=== PATIENT | male | born 1965 | race Caucasian/White ===

== ENCOUNTER 2017-05-18 07:47 | Emergency (ER) | payer SELFPAY ==
[2017-05-18 07:51] VITALS: BP 185/85
[2017-05-18] MEDS ORDERED: Cephalexin CAP* 500 MG PO ONE (08:00)
--- NOTE | 2017-05-18 18:53 | ED ---
Bi Elmore Angela, scribed for Kendall Treadwell MD on 05/18/17 at 0800 . Skin Complaint - HPI Summary HPI Summary: This pt is a 51 y/o male presenting to [facility] c/o redness area on his back x2 days. Pt notes that initially the area presented as a small sore. He reports it has progressively become larger in size. Pt denies fever. There are no aggravating or alleviating factors. He denies any PMHx of MRSA. NKDA. - History of Current Complaint Chief Complaint: EDRashSkinAbscess Time Seen by Provider: 05/18/17 07:53 Stated Complaint: LUMP ON BACK Hx Obtained From: Patient Onset/Duration: Started Days Ago, Still Present Skin Exposure Onset/Duration: Days Ago Timing: Lasting Days Pain Intensity: 2 Pain Scale Used: 0-10 Numeric Skin Location: Other: - back Character: Redness Aggravating Symptom(s): Nothing Alleviating Symptom(s): Nothing - Allergy/Home Medications Allergies/Adverse Reactions: Allergies Allergy/AdvReac Type Severity Reaction Status Date / Time No Known Allergies Allergy Verified 12/14/15 16:45 PMH/Surg Hx/FS Hx/Imm Hx Endocrine/Hematology History: Denies: Hx Diabetes, Hx Thyroid Disease Cardiovascular History: Denies: Hx Hypertension, Hx Pacemaker/ICD Respiratory History: Denies: Hx Asthma, Hx Chronic Obstructive Pulmonary Disease (COPD) GI History: Denies: Hx Ulcer Neurological History: Denies: Hx Seizures - Surgical History Surgery Procedure, Year, and Place: rt inguinal hernia repair 6 yrs ago Infectious Disease History: No Infectious Disease History: Reports: History Other Infectious Disease - Lyme 2014 Denies: Hx Hepatitis, Hx Human Immunodeficiency Virus (HIV), Traveled Outside the [place] in Last 30 Days - Family History Known Family History: Positive: Diabetes - Brother - Social History Alcohol Use: None Substance Use Type: Reports: None Smoking Status (MU): Never Smoked Tobacco Review of Systems Negative: Fever, Chills Eyes: Negative ENT: Negative Cardiovascular: Negative Respiratory: Negative Gastrointestinal: Negative Genitourinary: Negative Skin: Other - red area on back All Other Systems Reviewed And Are Negative: Yes Physical Exam - Summary Physical Exam Summary: VITAL SIGNS: Reviewed. GENERAL: Patient is a well-developed and nourished male who is lying comfortable in the stretcher. Patient is not in any acute respiratory distress. HEAD AND FACE: No signs of trauma. No ecchymosis, hematomas or skull depressions. No sinus tenderness. EYES: PERRLA, EOMI x 2, No injected conjunctiva, no nystagmus. EARS: Hearing grossly intact. Ear canals and tympanic membranes are within normal limits. MOUTH: Oropharynx within normal limits. NECK: Supple, trachea is midline, no adenopathy, no JVD, no carotid bruit, no c- spine tenderness, neck with full ROM. CHEST: Symmetric, no tenderness at palpation LUNGS: Clear to auscultation bilaterally. No wheezing or crackles. CVS: Regular rate and rhythm, S1 and S2 present, no murmurs or gallops appreciated. ABDOMEN: Soft, non-tender. No signs of distention. No rebound no guarding, and no masses palpated. Bowel sounds are normal. EXTREMITIES: FROM in all major joints, no edema, no cyanosis or clubbing. NEURO: Alert and oriented x 3. No acute neurological deficits. Speech is normal and follows commands. SKIN: Dry and warm. On back: there is induration of the skin. There is no abscess formation at this point. Triage Information Reviewed: Yes Vital Signs On Initial Exam: Initial Vitals Temp Pulse Resp BP Pulse Ox 98.7 F 117 18 185/85 97 05/18/17 07:48 05/18/17 07:48 05/18/17 07:48 05/18/17 07:48 05/18/17 07:48 Vital Signs Reviewed: Yes Diagnostics - Vital Signs Vital Signs Temp Pulse Resp BP Pulse Ox 05/18/17 07:48 98.7 F 117 18 185/85 97 - Laboratory Lab Statement: Any lab studies that have been ordered have been reviewed, and results considered in the medical decision making process. Course/Dx - Course Assessment/Plan: This pt is a 51 y/o male presenting to [facility] c/o redness area on his back x2 days. Pt notes that initially the area presented as a small sore. He reports it has progressively become larger in size. Pt denies fever. There are no aggravating or alleviating factors. He denies any PMHx of MRSA. NKDA. The pt has a small area of cellulitis on right upper back. There is no abscess formation at this time. Therefore, I will be treating the pt with antibiotics. He was given Keflex and is advised to follow up with his PCP. He was instructed to return to the ED for increase in pain, increase in cellulitis , or abscess formation. Pt understands and agrees. Pt is hemodynamically stable , alert and oriented x3. - Diagnoses Provider Diagnoses: Cellulitis Discharge - Discharge Plan Condition: Stable Disposition: HOME Prescriptions: Cephalexin CAP* [Keflex CAP*] 500 mg PO QID #40 cap Patient Education Materials: Cellulitis (ED) Referrals: [facility] [Outside] Additional Instructions: Please follow up with your primary care provider. RETURN TO THE ED FOR ANY WORSENING SYMPTOMS. The documentation as recorded by the Bi rdz Angela accurately reflects the service I personally performed and the decisions made by , Kendall Treadwell MD.
== END 2017-05-18 08:17 | disposition home or self-care (01) ==
LOC: ED 07:47
DX: L03.312 Cellulitis of back [any part except buttock and flank] (principal)
CPT/HCPCS: 99282; A9270-GY

== ENCOUNTER 2018-05-31 18:24 | Emergency (ER) | payer SELFPAY ==
[2018-05-31] MEDS ORDERED: HYDROcodone/ACETAMIN 5-325 MG* 1 TAB PO ONE (19:06)
[2018-05-31] MEDS ORDERED: Ibuprofen TAB* 600 MG PO ONE (20:08)
--- NOTE | 2018-05-31 20:10 | ED ---
Lower Extremity - HPI Summary HPI Summary: Patient complains of right shoulder pain and left knee pain status post mechanical fall this evening. Patient admits to 3 beers, but it is appropriate in behavior and response. Friend is present and witnessed fall and states patient is near baseline in behavior and response. Patient states he has not ambulated since mechanical fall. States pain in shoulder and left knee 2/10 at rest, 10/10 with movement. Denies any other pain, injury, symptoms. - History of Current Complaint Chief Complaint: EDTraumaMultiple Stated Complaint: RT SHOULDER AND LT KNEE PAIN Time Seen by Provider: 05/31/18 18:46 Hx Obtained From: Patient Mechanism Of Injury: Fall From A Standing Position Onset of Pain: Immediate Onset/Duration: Hours Severity Initially: Severe Severity Currently: Severe Pain Intensity: 9 Pain Scale Used: 0-10 Numeric Timing: Constant Location: Is Discrete @ Character Of Pain: Aching, Throbbing Associated Signs And Symptoms: Positive: Knee Pain Aggravating Factor(s): Standing, Ambulation, Movement, Weight Bearing Alleviating Factor(s): Rest Able to Bear Weight: No - Allergies/Home Medications Allergies/Adverse Reactions: Allergies Allergy/AdvReac Type Severity Reaction Status Date / Time No Known Allergies Allergy Verified 05/31/18 19:01 PMH/Surg Hx/FS Hx/Imm Hx Endocrine/Hematology History: Denies: Hx Diabetes, Hx Thyroid Disease Cardiovascular History: Denies: Hx Hypertension, Hx Pacemaker/ICD Respiratory History: Denies: Hx Asthma, Hx Chronic Obstructive Pulmonary Disease (COPD) GI History: Denies: Hx Ulcer History: Denies: Hx Dialysis Neurological History: Denies: Hx Seizures Psychiatric History: Denies: Hx Autism - Surgical History Surgery Procedure, Year, and Place: rt inguinal hernia repair 6 yrs ago Infectious Disease History: No Infectious Disease History: Reports: History Other Infectious Disease - Lyme 2014 Denies: Hx Hepatitis, Hx Human Immunodeficiency Virus (HIV), Traveled Outside the [place] in Last 30 Days - Family History Known Family History: Positive: Unknown, Diabetes - Brother - Social History Alcohol Use: None Substance Use Type: Reports: None Smoking Status (MU): Never Smoked Tobacco Review of Systems Constitutional: Negative Eyes: Negative ENT: Negative Cardiovascular: Negative Respiratory: Negative Gastrointestinal: Negative Genitourinary: Negative Musculoskeletal: Other Skin: Negative Neurological: Negative Psychological: Normal All Other Systems Reviewed And Are Negative: Yes Physical Exam - Summary Physical Exam Summary: No ecchymosis, erythema, swelling, deformity, extra warmth noted to right shoulder or left knee. Patient able to move left upper extremity and right lower extremity freely without pain. No evidence of trauma to mouth, face, head. Patient rotates and flexes and extends neck freely. No pain with palpation of back, abdomen, chest wall. Triage Information Reviewed: Yes Vital Signs On Initial Exam: Initial Vitals Temp Pulse Resp BP Pulse Ox 99.7 F 82 18 185/106 93 05/31/18 18:30 05/31/18 18:30 05/31/18 18:30 05/31/18 18:30 05/31/18 18:30 Vital Signs Reviewed: Yes Appearance: Positive: Well-Appearing Skin: Positive: Warm Head/Face: Positive: Normal Head/Face Inspection Eyes: Positive: Normal ENT: Positive: Normal ENT inspection Neck: Positive: Supple Respiratory/Lung Sounds: Positive: Clear to Auscultation Cardiovascular: Positive: Normal Abdomen Description: Positive: Nontender Musculoskeletal: Positive: Normal Neurological: Positive: Normal Psychiatric: Positive: Normal AVPU Assessment: Alert - Fareed Coma Scale Best Eye Response: 4 - Spontaneous Best Motor Response: 6 - Obeys Commands Best Verbal Response: 5 - Oriented Coma Scale Total: 15 Diagnostics - Vital Signs Vital Signs Temp Pulse Resp BP Pulse Ox 05/31/18 18:30 99.7 F 82 18 185/106 93 - Laboratory Lab Statement: Any lab studies that have been ordered have been reviewed, and results considered in the medical decision making process. Lower Extremity Course/Dx - Course Course Of Treatment: Patient complains of right shoulder pain and left knee pain status post mechanical fall this evening. Patient admits to 3 beers, but it is appropriate in behavior and response. Friend is present and witnessed fall and states patient is near baseline in behavior and response. Patient states he has not ambulated since mechanical fall. States pain in shoulder and left knee 2/10 at rest, 10/10 with movement. Denies any other pain, injury, symptoms. Physical exam:No ecchymosis, erythema, swelling, deformity, extra warmth noted to right shoulder or left knee. Patient able to move left upper extremity and right lower extremity freely without pain. No evidence of trauma to mouth, face, head. Patient rotates and flexes and extends neck freely. No pain with palpation of back, abdomen, chest wall. X-ray right shoulder and left knee both negative. Patient insists on left knee immobilizer and crutches. Patient advised to follow-up with orthopedics. - Diagnoses Provider Diagnoses: Fall, Knee pain, Shoulder pain Discharge - Sign-Out/Discharge Documenting (check all that apply): Patient Departure - Discharge Plan Condition: Stable Disposition: HOME Prescriptions: HYDROcodone/ACETAMIN 5-325 MG* [Horatio 5-325 TAB*] 1 tab PO TID 2 Days #4 tab MDD 3 tabs Patient Education Materials: Knee Sprain (ED), Shoulder Sprain (ED) Referrals: No Primary Care Phys,NOPCP [Primary Care Provider] - Mykel Toledo MD [Medical Doctor] - Additional Instructions: Rest, ice, ibuprofen for pain. Follow-up with orthopedics Dr Toledo for further evaluation. Return to the ED for any new or worsening symptoms - Billing Disposition and Condition Condition: STABLE Disposition: Home
[2018-05-31 20:33] VITALS: BP 130/75
== END 2018-05-31 20:32 | disposition home or self-care (01) ==
LOC: ED 18:24
DX: M25.511 Pain in right shoulder (principal); M25.562 Pain in left knee; W19.XXXA Unspecified fall, initial encounter; Y92.9 Unspecified place or not applicable
CPT/HCPCS: 99282; A9270-GY

== ENCOUNTER 2018-06-23 10:16 | Emergency (ER) | payer SELFPAY ==
[2018-06-23 10:30] VITALS: BP 137/87
== END 2018-06-23 10:40 | disposition left against medical advice (07) ==
LOC: UCEAST 10:16
DX: Z53.21 Procedure and treatment not carried out due to patient leaving prior to being seen by health care provider (principal)

== ENCOUNTER → 2018-08-20 11:59 | Day surgery (SDC) | payer MEDICAID ==
--- NOTE | 2018-08-16 15:26 | HP ---
PREOPERATIVE HISTORY AND PHYSICAL: DATE OF ADMISSION/SURGERY: 08/20/18 DATE OF OFFICE VISIT: 08/16/18 ATTENDING SURGEON: Dr. Shashi Villasenor.* (DICTATED BY PRADEEP CHANDRA) PROCEDURE: Left knee patellar tendon repair possibly with allograft. CHIEF COMPLAINT: Left knee pain. HISTORY OF PRESENT ILLNESS: Renny is a 52-year-old male who presents to the clinic for chronic left knee patellar tendon tear. He has failed conservative measures, therefore agreed to undergo a left knee patellar tendon repair possibly with allograft by Dr. Villasenor on 08/20/18. PAST MEDICAL HISTORY: Lyme disease, gout, diverticulitis, hypertension. PAST SURGICAL HISTORY: Hernia repair. Denies prior complications with anesthesia. MEDICATIONS: Ibuprofen 200 mg 2 to 3 tabs every 6 hours as needed for pain. ALLERGIES: No known drug allergies. FAMILY HISTORY: Denies pertinent family history. SOCIAL HISTORY: He lives with his family. 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 He denies tobacco use. He reports occasional alcohol consumption. He is right hand dominant. REVIEW OF SYSTEMS: A 14-point review of systems was reviewed with the patient. Positive for current complaint, otherwise negative. Denies fever, chills, chest pain, shortness of breath, history of DVT or PE, history of bleeding disorder. PHYSICAL EXAMINATION GENERAL: A 52-year-old well-developed, well-nourished male, in no acute distress. VITAL SIGNS: Height 70, weight 182, blood pressure 120/78, BMI 26.1. HEENT: Normocephalic, atraumatic. PERRLA. Throat clear. NECK: Supple. PULMONARY: Lungs are clear to auscultation bilaterally. No wheezing, rhonchi, or rales. CARDIO: Regular rate and rhythm. S1, S2. No murmurs, gallops, or rubs. No edema. ABDOMEN: Positive bowel sounds. Soft, nontender. NEURO: Alert and oriented x3. Cranial nerves grossly intact. MUSCULOSKELETAL: Left lower extremity: Skin is intact. No warmth or erythema. Unable to extend leg against gravity. Stable to varus and valgus stress. Calves soft, nontender. +5/5 strength to ankle dorsiflexion and plantarflexion. +2 DP pulse. Sensation intact to light touch distally. IMPRESSION: Left knee patellar tendon tear. PLAN: The patient is scheduled to undergo a left knee patellar tendon repair possibly with allograft with Dr. Villasenor on 08/20/18. He will follow up in 10 to 14 days postop for followup and suture removal. Percocet will be used for postop pain management. PRADEEP CHANDRA [id number]/[facility] #: [id number] ORLIN
[~2018-08-20 11:59] MED LIST: Buffered Lidocaine 1% SYRIN* 1 ML/SYRINGE INTRADERM ONE; Dexamethasone IV* 4 MG/ML 1 ML (4 MG) IV SLOW PU ONE; DiMENhydriNATE IV* 50 MG/ML VIAL IV PUSH PRN; Famotidine IV* 10 MG/ML 2 ML (20 mg) IV ONE; Glycopyrrolate IV* 0.2 MG/ML 1 ML VIAL ONE; HYDROmorphone INJ1* 1 MG/ML SYRINGE IV PRN; Ketorolac INJ* 30 MG/ML 1 ML VIAL ONE; Lactated Ringers 1000 ML Bag* 1,000 ML IV SCH; Lidocaine 2% PF * 5 ML VIAL ONE; Midazolam* 1 MG/ML 5 ML VIAL (5 MG) ONE; Naloxone* 0.4 MG/ML 1 ML VIAL IV PRN; Ondansetron INJ* 2 MG/ML VIAL IV PRN; Ondansetron INJ* 2 MG/ML VIAL ONE; Propofol* 10 MG/ML 20 ML BTL ONE; Rocuronium* 10 MG/ML VIAL ONE; Ropivacaine* 2 MG/ML 20 ML VIAL (0.2%) ONE; Sugammadex * 200 MG/2 ML VIAL IV PUSH ONE; Sugammadex * 500 MG/5 ML VIAL IV PUSH ONE; fentaNYL* 50 MCG/ML 2 ML VIAL (100 MCG VIAL) IV PRN; fentaNYL* 50 MCG/ML 2 ML VIAL (100 MCG VIAL) ONE; fentaNYL* 50 MCG/ML 5 ML VIAL (250 MCG VIAL) ONE; oxyCODONE/Acetamin 5/325 MG* TAB ONE
[2018-08-20] MEDS: oxyCODONE/Acetamin 5/325 MG* TAB PO PRN ×2 (17:53→18:57)
[2018-08-20 19:37] VITALS: BP 147/97
--- NOTE | 2018-08-21 12:30 | OP ---
DATE OF OPERATION: 08/20/18 [facility] DATE OF : 69 SURGEON: Shashi Villasenor MD ELECTRONIC INSTRUMENT TRADES WORKER: PRADEEP Mackenzie. An statistical assistant was needed for the entirety of the case to help with positioning, retraction, and was utilized throughout all portions of the case. ANESTHESIOLOGIST: Dr. Cameron. ANESTHESIA: General. PRE-OP DIAGNOSIS: Left chronic patellar tendon rupture. 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 OPERATIVE PROCEDURE: Left patellar tendon reconstruction using allograft. INDICATIONS: Renny Smith is a 52-year-old male who sustained injury to his left knee when he slipped around 05/22/18 after Thanksgiving. He underwent x-rays and they missed that he had a patellar tendon rupture. This happened actually on 05/22/18. He has had persistent pain, difficulty with walking. He initially saw me on 07/05/18, and we diagnosed him with the rupture and we scheduled him for surgery. He was unable to do it due to insurance issues. Then, he got insurance and now injured it again. He would like to have this addressed. We talked about the risks and benefits of surgery. Risks include but are not limited to bleeding, infection; damage to nerves, vessels, surrounding structures; wound nonhealing, persistent pain, need for further surgery, scarring, stiffness, incomplete relief of symptoms, risks of anesthesia. He has elected to proceed with surgical treatment. We did discuss that he is a risk of stiffness and risk of DVT because of the nature of this injury. He has elected to proceed with surgery. COMPLICATIONS: None. ESTIMATED BLOOD LOSS: 200 cc. DISPOSITION: Stable. DESCRIPTION OF PROCEDURE: The patient was greeted in the preoperative area by the attending surgeon. Correct extremity was marked and consent was confirmed. The patient was brought back to the operating suite where he was placed in supine position on the operating table. He then underwent general anesthesia and endotracheal intubation, after which he was appropriately positioned in the bed. The left leg was then prepped and draped in the usual sterile fashion beginning with chlorhexidine soap, scrub, and alcohol wipe and a final prep with ChloraPrep. After appropriate surgical pause indicating side, site, procedure, and administration of antibiotics, an extensile midline incision was made over the patellar tendon. Soft tissues were carefully dissected. There was a significant amount of woody fibrous tissue. There was evidence of patellar tendon rupture with superior dispacement of the patella. Distally, the patellar tendon had been scarred already to the fat pad and there was not a lot of tissue remaining. The inferior aspect of the patella was then visualized and the joint examined. There was an obvious chondral flap along the trochlea with unstable edges that was gently debrided. At this point attention was directed to exposure. The layers had all been scarred and the planes were meticulously dissected to expose layers. Fibrinous, woody tissue was removed. The quads were exposed and freed from scar. The proximal extensor mechanism was preserved and the disease tissue was removed from the medial and lateral edges of capsule and patella to allow for mobilization. The quads and patella mobilized well so no z lengthening was required. Using preoperative calculation and the contralateral leg for reference. The proximal tissue was mobilized. The distal tendon was carefully identified and was abundantly scarred thus considered not able to be repaired. Any remaining segments were preserved to be incorporated as a reconstruction was required. The graft was thawed on the back table. The fibrinous scar was removed and the tibial tubercle exposed. The bony portion of the achilles graft was measured and used as a template to outline the position for the distal bone block on the tibia. This was about 2 cm x 3 cm. A sagittal saw, osteotomes, and steffany were used to created a space for the bony block of the graft to fit in. The graft was pared down a small amount and placed until it was flush. A tamp was also used. At this point this was secured with a kwire and then a 4.5 mm cortical screw was then placed with a washer for fixation. There was only space for 1 screw. The k wire was kept in to prevent rotation until the end of the case to prevent rotation. The sof ttissue portion of the graft was then flapped up and with tension on the patella to reduce it, the graft was marked. Attention was directed to the patella and 2 q fix anchors were placed on the inferior pole. These were then whip stitched along the graft. The extra sutures were kept for passage through the retinaculum and remaining tissue. With tension on the patella to reduce it, the stitches were tied. The extra sutures were passed through the capsule and remaining tendon. Tension was released and the graft held. The remaining graft was then draped over the patella and secured with ethibond #2 and #5. There was excess proximal to the patella which was folded back down to provide extra collagen over now reconstructed tendon. These were tied down to the capsule and covered the anterior aspect of the patellar tendon. The k wire was removed. The knee was taken through gentle range of motion and able to be flexed to around 80 degrees. At this point the wounds were copiously irrigated. The wound closed in layers with 3-0 moncryl and then stables. Sterile dressings and a cryocuff were applied after the wound was injected with .2 ropivicaine. The extremity remained warm and well perfused. The patient was awoken from anesthesia and transferred to the PACU in stable condition. Post operative plan: He will be wbat on leg. Discharged on pain medication. DVT ppx was considered but deferred due to no previous or person history, We will begin 0-30 ROM at week 2 and progress to 90 degrees weekly by 6 weeks. I will see him back in 2 weeks. [id number]/[facility] #: [id number] [facility]ITAL[facility]enrry
== END | disposition home or self-care (01) ==
LOC: OR 11:59
PROVIDERS: ATTEND Orthopaedic Surgery
DX: S76.112D Strain of left quadriceps muscle, fascia and tendon, subsequent encounter (principal); X58.XXXD Exposure to other specified factors, subsequent encounter; Y92.9 Unspecified place or not applicable; I10 Essential (primary) hypertension
CPT/HCPCS: 76000; A9270-GY; C1713; C1768; C1776; J1885; J2250; J2405; J2704; J2795; J3010

== ENCOUNTER 2018-09-19 08:19 | Emergency (ER) | payer MEDICAID, OTHER ==
--- OUTSIDE RECORDS SUMMARY | 2018-09-19 08:38 | XMS REPORT | Continuity of Care Document ---
:1965 External Reference #:[id number] Author Name Chani Robbins Care Team Providers Name Role Phone Patient's Choice Primary Care Physician Unavailable Payers Date Identification Numbers Payment Provider Subscriber Policy Number: [id number] [place] Renny mSith PayID: [id number] [address] [place] [address] Expires: 2018 Policy Number: [id number] Medicaid Renny Smith Group Name: 1 1 [address] PayID: [id number] [place] [address] Advance Directives Description No Information Available Problems Date Description Provider Status Onset: 07/05/2018 Injury of hip region Shashi Villasenor MD Active Onset: 09/06/2018 Strain of other muscle(s) and tendon(s) at Shashi Villasenor MD Active lower leg level, left leg, subsequent encounter Family History Date Family Member(s) Observation Comments General No Current Problems Social History Type Date Description Comments Sex Unknown Lives With Family Occupation Currently Working ETOH Use Occasionally consumes alcohol Tobacco Use Start: Unknown Patient has never smoked Smoking Status Reviewed: 09/06/18 Patient has never smoked Exercise Type/Frequency Exercises sporadically Allergies, Adverse Reactions, Alerts Description No Known Drug Allergies Medications Medication Date Status Form Strength Qnty SIG Indications Ordering Provider Percocet Active Tablets 5-325mg 20tabs 1 tabs by Shashi Sr mouth MD [place] every 4-6 hours as needed pain Keflex Active Capsules 500mg 12caps take 1 Shashi 019 tab by MD [place] mouth four times a day x 3 days Ibuprofen 200 00/00/0 Active Tablets 200mg 400-600mg Unknown 000 every 6 hours as needed for pain. Immunizations Description No Information Available Vital Signs Date Vital Result Comment 09/06/2018 2:22pm Height 70 inches 5'10" Weight 182.00 lb Heart Rate 76 /min Body Temperature 98.2 F Pain Level 2 O2 % BldC Oximetry 97 % BMI (Body Mass Index) 26.1 kg/m2 08/30/2018 2:54pm Height 70 inches 5'10" Weight 182.00 lb Heart Rate 72 /min BP Systolic 130 mmHg BP Diastolic 78 mmHg Body Temperature 97.6 F Pain Level 2 BMI (Body Mass Index) 26.1 kg/m2 08/16/2018 1:11pm Height 70 inches 5'10" Weight 182.00 lb BP Systolic 128 mmHg BP Diastolic 78 mmHg Respiratory Rate 18 /min Pain Level 2 BMI (Body Mass Index) 26.1 kg/m2 08/07/2018 2:45pm Height 70 inches 5'10" Weight 182.00 lb BP Systolic 128 mmHg BP Diastolic 82 mmHg Respiratory Rate 18 /min Pain Level 2 BMI (Body Mass Index) 26.1 kg/m2 07/05/2018 1:03pm Height 70 inches 5'10" Weight 182.00 lb BP Systolic 130 mmHg BP Diastolic 74 mmHg Respiratory Rate 18 /min Pain Level 2 BMI (Body Mass Index) 26.1 kg/m2 Results Description No Information Available Procedures Date Code Description Status 08/20/2018 02892 Repair Infrapatellar Tendon Secondary W/Fascial/Tendon Completed Graft 08/20/2018 52809 Repair Infrapatellar Tendon Secondary W/Fascial/Tendon Completed Graft Encounters Type Date Location Provider Dx Diagnosis Office Visit 08/07/2018 Orthopedic Shashi Villasenor MD S86.812D Strain of 2:[facility] musc/tend at lower leg level, left leg, subs Office Visit 07/05/2018 Orthopedic Shashi Villasenor MD S76.102A Unsp injury of 1:00p [facility] left quadriceps musc/fasc/tend, init S86.812A Strain of musc/tend at lower leg level, left leg, init Plan of Treatment Future Appointment(s):10/02/2018 3:15 pm - Shashi Villasenor MD at [facility]09/06/2018 - Shashi Villasenor, [id number] Strain of other muscle(s ) and tendon(s) at lower leg level,New Xrays:Knee Left 1-2 VWS, Ordered: New Therapy:Physical TherapyFollow up:Follow up: 3 weeks
[2018-09-19 10:41] LABS: ABS Basophils 0.1 10^3/ul (0-0.2); ABS Eosinophils 0.2 10^3/ul (0-0.6); ABS Lymphocytes 2.3 10^3/ul (1.0-4.8); ABS Monocytes 0.6 10^3/ul (0-0.8); ABS Neutrophils 7.4 10^3/ul (1.5-7.7); ABS Nucleated RBC 0 10^3/ul; Eosinophil % 2.2 %; Hematocrit 47 % (36-46); Hemoglobin 16.5 g/dL (14.0-18.0); Lymphocyte % 21.5 %; Mean Corpuscular HGB Conc 35 g/dL (31-36); Mean Corpuscular Hemoglobin 34 pg (27-31); Mean Corpuscular Volume 96 fL (80-94); Mean Platelet Volume 9.2 fL (7.4-10.4); Nucleated Red Blood Cells % 0.2; Platelet Count 190 10^3/uL (150-450); Red Blood Count 4.91 10^6 /uL (4.18-5.48); Red Cell Distribution Width 13 % (10.5-15); White Blood Count 10.7 10^3/uL (3.5-10.8)
--- NOTE | 2018-09-19 12:23 | ED ---
Lower Extremity - HPI Summary HPI Summary: Patient is a 52-year-old male who presents emergency Department ankle for evaluation of surgical incision to left knee. Pt. states he had a quadriceps tendon repair 08/20/[address] Villasenor. Pt. states after salena were removed he had a small opening in the central area of wound. Pt. states he was clean area with peroxide. Pt. then noticed he had some redness around incision and a bloody drainage. Pt. called ortho yesterday and was placed on keflex. Pt. presents today for eval. He denies fever, chills, N/V, CP, SOB. No past medical hx. Pt. denies increased pain. Sxs are mild-moderate in severity. No current modifying factors. - History of Current Complaint Chief Complaint: EDExtremityLower Stated Complaint: POSS INFECTION IN KNEE SURGERY AREA PER PT Time Seen by Provider: 09/19/18 08:49 Hx Obtained From: Patient Pain Intensity: 2 - Allergies/Home Medications Allergies/Adverse Reactions: Allergies Allergy/AdvReac Type Severity Reaction Status Date / Time No Known Allergies Allergy Verified 09/19/18 08:28 Home Medications: Home Medications Cephalexin CAP* [Keflex 500 CAP*] 500 mg PO QID 09/19/18 [History Confirmed ] PMH/Surg Hx/FS Hx/Imm Hx Previously Healthy: Yes Endocrine/Hematology History: Denies: Hx Diabetes, Hx Thyroid Disease Cardiovascular History: Reports: Hx Hypertension - MEDICATED Denies: Hx Pacemaker/ICD, Other Cardiovascular Problems/Disorders Respiratory History: Denies: Hx Asthma, Hx Chronic Obstructive Pulmonary Disease (COPD), Other Respiratory Problems/Disorders GI History: Denies: Hx Ulcer, Other GI Disorders History: Denies: Hx Dialysis Musculoskeletal History: Denies: Other Musculoskeletal History Sensory History: Denies: Hx Contacts or Glasses, Hx Hearing Aid Opthamlomology History: Denies: Hx Contacts or Glasses Neurological History: Denies: Hx Seizures, Other Neuro Impairments/Disorders Psychiatric History: Denies: Hx Autism, Hx Panic Disorder - Cancer History Hx Chemotherapy: No - Surgical History Surgery Procedure, Year, and Place: rt inguinal hernia repair 6 yrs ago Hx Anesthesia Reactions: No Infectious Disease History: No Infectious Disease History: Reports: History Other Infectious Disease - Lyme 2014 Denies: Hx Hepatitis, Hx Human Immunodeficiency Virus (HIV), Traveled Outside the [place] in Last 30 Days - Family History Known Family History: Positive: Unknown, Diabetes - Brother - Social History Occupation: Employed Full-time Lives: With Family Alcohol Use: Daily Alcohol Amount: 2 Substance Use Type: Reports: Marijuana Smoking Status (MU): Never Smoked Tobacco Review of Systems Constitutional: Negative Negative: Fever, Chills Cardiovascular: Negative Negative: Chest Pain Respiratory: Negative Negative: Shortness Of Breath Positive: Other - surgical wound to left knee Negative: Weakness, Paresthesia, Numbness All Other Systems Reviewed And Are Negative: Yes Physical Exam Triage Information Reviewed: Yes Vital Signs On Initial Exam: Initial Vitals Temp Pulse Resp BP Pulse Ox 98 F 93 16 131/96 96 09/19/18 08:23 09/19/18 08:23 09/19/18 08:23 09/19/18 08:23 09/19/18 08:23 Vital Signs Reviewed: Yes Appearance: Positive: Well-Appearing - Pt. sitting on bed in NAD. Skin: Positive: Warm, Dry Head/Face: Positive: Normal Head/Face Inspection Eyes: Positive: Normal, EOMI Neck: Positive: Supple Musculoskeletal: Positive: Other - Healing surgical incision midline to anterior left knee. Steri strips to incision. Over area of the patella there is a small area of scab noted, surrounding area is mildly pink but not hot or painful. No induration or fluctuance. No calf tenderness or pain. Neurological: Positive: Normal, CN Intact II-III Psychiatric: Positive: Affect/Mood Appropriate Diagnostics - Vital Signs Vital Signs Temp Pulse Resp BP Pulse Ox 09/19/18 08:23 98 F 93 16 131/96 96 - Laboratory Lab Results: Lab Results 09/19/18 09/19/18 Range/Units 10:29 10:29 WBC 10.7 (3.5-10.8) 10^3/uL RBC 4.91 (4.18-5.48) 10^6 /uL Hgb 16.5 (14.0-18.0) g/dL Hct 47 H (36-46) % MCV 96 H (80-94) fL MCH 34 H (27-31) pg MCHC 35 (31-36) g/dL RDW 13 (10.5-15) % Plt Count 190 (150-450) 10^3/uL MPV 9.2 (7.4-10.4) fL Neut % (Auto) 69.8 % Lymph % (Auto) 21.5 % [place] % (Auto) 5.9 % Eos % (Auto) 2.2 % Baso % (Auto) 0.6 % Absolute Neuts (auto) 7.4 (1.5-7.7) 10^3/ul Absolute Lymphs (auto) 2.3 (1.0-4.8) 10^3/ul Absolute Monos (auto) 0.6 (0-0.8) 10^3/ul Absolute Eos (auto) 0.2 (0-0.6) 10^3/ul Absolute Basos (auto) 0.1 (0-0.2) 10^3/ul Absolute Nucleated RBC 0 10^3/ul Nucleated RBC % 0.2 ESR Pending C-Reactive Protein 29.98 H (<8.01) mg/L Result Diagrams: 09/19/18 10:29 Lab Statement: Any lab studies that have been ordered have been reviewed, and results considered in the medical decision making process. Lower Extremity Course/Dx - Course Course Of Treatment: Patient presenting for regulation of postop surgical incision. He is afebrile stable vital signs. Wound appears to be healing nicely without signs of infection on my exam. I spoke with patient's orthopedic doctor who had her PA examined patient the ER. Blood work was ordered orthopedics and shows a mildly elevated CRP and normal WBC. Dr. Villasenor evaluated patient in the ER and is okay to discharge. Advised to continue Keflex as directed. Patient has a scheduled appointment on Monday for follow- up. We'll return to the ER symptoms change or worsen. - Diagnoses Differential Diagnosis/HQI/PQRI: Positive: Cellulitis Provider Diagnoses: Surgical wound present Discharge - Sign-Out/Discharge Documenting (check all that apply): Patient Departure Patient Received Moderate/Deep Sedation with Procedure: No - Discharge Plan Condition: Good Disposition: HOME Patient Education Materials: Acute Wound Care (ED) Referrals: Shashi Villasenor MD [Medical Doctor] - Additional Instructions: Follow up with Dr. Villasenor as scheduled Continue keflex as directed Return to ER for increased pain, fever, increased redness/swelling or if concerned - Billing Disposition and Condition Condition: GOOD Disposition: Home - Attestation Statements Provider Attestation: I was available for consult. This patient was seen by the TISHA. The patient was not presented to, seen by, or examined by me. -Edgard
[2018-09-19 14:24] VITALS: BP 125/78
[2018-09-19 17:54] LABS: Erythrocyte Sed Rate 12 mm/Hr (0-20)
--- NOTE | 2018-09-19 21:58 | CONS ---
CONSULTATION REPORT: DATE OF CONSULT: 09/19/18 - EMERGENCY DEPT ATTENDING PHYSICIAN: Shashi Villasenor MD CHIEF COMPLAINT: Left leg incision, redness, possible infection. This is an ER visit. HISTORY OF PRESENT ILLNESS: Briefly, Renny Smith is a 52-year-old male who is status post left knee patellar tendon reconstruction with allograft; who is about a month out from surgery, which was on 08/20/18 that was done by me. He called the office yesterday with some increasing redness and discoloration in the incision. He was using alcohol as well as peroxide because it looked funny. He did not notice a lot of drainage. He then had a warm chill this morning and was nervous and came straight to the ER. We did offer him an appointment in our office yesterday, which he was unable to accommodate and refused. He states that he denies any fevers or other chills. He was concerned and came straight to the hospital for evaluation. I was called urgently from the ER to evaluate him. He has been afebrile. No numbness or tingling. No fevers or chills. On exam, he is resting comfortably in a stretcher. For full details, please see consult note by Renee Ro. PHYSICAL EXAM: He is in no acute distress. He is well nourished. He is afebrile. Vital signs are stable. Examination of the left knee demonstrates the incision has healed well. There is a little bit area of maceration about the center aspect of the patella, but there is no erythema or warmth. There is no streaking. There is no evidence of infection. The calf is soft and nontender. He is sensate to light touch about the first dorsal web space, medial, dorsal, and plantar foot. He is able to flex and extend his toes. His quadriceps appears to be palpable and his patella appears to be properly positioned. DIAGNOSTIC STUDIES/LAB DATA: Obtained at the hospital reviewed; it demonstrated white count of 10.7, platelet count of 190, ESR of 12, CRP of 29.98 , hematocrit of 47. Vitals: His temperature max is 99.3, blood pressure of 122/80, pulse is 75, respiratory rate is 16. ASSESSMENT AND PLAN: On examination, he does not appear to have an infection. We did start Keflex on him yesterday. He does not have a white count. He does have an elevated CRP which could be nonspecific. His ESR is normal. At this point, his incision looks like it has healed. I do not see any obvious drainage. I am going to follow him. We will have him continue with his Keflex. He will continue with his pain management with antiinflammatories. He can work on range of motion from 0 to 30 degrees. I am going to see him in the office on Monday morning, but if he starts to get fevers, chills, redness, drainage, and worsening symptoms; he will come back to the ER, but he will call the office first. I will see the patient back on Monday. This was discussed with the patient, he is agreeable with this plan. [id number]/CPS #: [id number] ORLIN
== END 2018-09-19 13:35 | disposition home or self-care (01) ==
LOC: ED 08:19
DX: Z98.890 Other specified postprocedural states (principal); I10 Essential (primary) hypertension
CPT/HCPCS: 36415; 85025; 85652; 86140; 99282

== ENCOUNTER 2019-01-24 13:26 | Emergency (ER) | payer OTHER ==
--- OUTSIDE RECORDS SUMMARY | 2019-01-24 13:33 | XMS REPORT | Continuity of Care Document ---
:1965 External Reference #:[id number] Author Name Shae Christine Care Team Providers Name Role Phone Patient's Choice Primary Care Physician Unavailable Payers Date Identification Numbers Payment Provider Subscriber Policy Number: [id number] [place] Renny Smith PayID: [id number] [address] [place] [address] Expires: 2018 Policy Number: [id number] Medicaid Renny Smith Group Name: 1 1 [address] PayID: [id number] [place] [address] Problems Active Problems Provider Date Injury of hip region Shashi Villasenor MD Onset: 07/05/2018 Strain of other muscle(s) and tendon(s) at lower Shashi Villasenor MD Onset: 12/2018 leg level, left leg, subsequent encounter Family History Date Family Member(s) Observation Comments General No Current Problems Social History Type Date Description Comments Sex Unknown Lives With Family Occupation Currently Working ETOH Use Occasionally consumes alcohol Tobacco Use Start: Unknown Patient has never smoked Smoking Status Reviewed: 01/24/19 Patient has never smoked Exercise Type/Frequency Exercises sporadically Allergies, Adverse Reactions, Alerts Description No Known Drug Allergies Medications Active Medications SIG Qnty Indications Ordering Provider Date Tde 1units Shashi Villasenor MD 10/05/2018 Ibuprofen 200 400-600mg every Unknown 200mg 6 hours as Tablets needed for pain. History Medications Keflex take 1 tab by Daycapdavid Villasenor MD 09/18/2018 - 500mg Capsules mouth four times a 10/26/2018 day x 7 days Percocet 1 tabs by mouth 20tabs Shashi Villasenor MD 08/20/2018 - 5-325mg every 4-6 hours as 08/30/2018 Tablets needed pain Keflex take 1 tab by lena Villasenor MD 08/20/2018 - 500mg Capsules mouth four times a 08/30/2018 day x 3 days Vital Signs Date Vital Result Comment 01/24/2019 1:02pm Height 70 inches 5'10" Weight 176.00 lb BP Systolic 120 mmHg BP Diastolic 78 mmHg Respiratory Rate 18 /min Body Temperature 97.9 F Pain Level 1 BMI (Body Mass Index) 25.3 kg/m2 11/16/2018 9:25am Height 70 inches 5'10" Weight 176.00 lb BP Systolic 124 mmHg BP Diastolic 70 mmHg Respiratory Rate 18 /min Pain Level 2 BMI (Body Mass Index) 25.3 kg/m2 10/18/2018 8:16am Height 70 inches 5'10" Weight 176.00 lb Heart Rate 72 /min BP Systolic 122 mmHg BP Diastolic 68 mmHg Body Temperature 97.3 F Pain Level 3 BMI (Body Mass Index) 25.3 kg/m2 09/28/2018 9:08am Height 70 inches 5'10" Weight 175.00 lb Heart Rate 75 /min BP Systolic 180 mmHg BP Diastolic 100 mmHg Body Temperature 98.2 F Pain Level 2 BMI (Body Mass Index) 25.1 kg/m2 09/21/2018 8:12am Height 70 inches 5'10" Weight 182.00 lb BP Systolic 120 mmHg BP Diastolic 68 mmHg Respiratory Rate 18 /min Body Temperature 98.0 F Pain Level 2 BMI (Body Mass Index) 26.1 kg/m2 09/06/2018 2:22pm Height 70 inches 5'10" Weight [...] 2 BMI (Body Mass Index) 26.1 kg/m2 Procedures Date Code Description Status 08/20/2018 39467 Repair Infrapatellar Tendon Secondary W/Fascial/Tendon Completed Graft 08/20/2018 41320 Repair Infrapatellar Tendon Secondary W/Fascial/Tendon Completed Graft Encounters Type Date Location Provider Dx Diagnosis Office Visit 11/16/2018 Orthopedic Shashi Villasenor MD S86.812D Strain of 9:15a [facility] musc/tend at lower leg level, left leg, subs Office Visit 08/07/2018 Cindy Villasenor MD S86.812D Strain of 2:15p [facility] musc/tend at lower leg level, left leg, subs Office Visit 07/05/2018 Orthopedic Shashi Villasenor MD S76.102A Unsp injury of 1:00p [facility] left quadriceps musc/fasc/tend, init S86.812A Strain of musc/tend at lower leg level, left leg, init Plan of Treatment Future Appointment(s):03/28/2019 1:15 pm - Shashi Villasenor MD at [facility]01/24/2019 - Shashi Villasenor, [id number] Strain of other muscle(s ) and tendon(s) at lower leg level,Follow up:Follow up: 2 months
[2019-01-24 13:37] VITALS: BP 131/92
--- NOTE | 2019-01-24 13:44 | UC ---
Skin Complaint HPI - HPI Summary HPI Summary: 53 yo male presents with lump on his chest. He tells me that about 4 months ago he noticed a bump to the lower part of his sternum. He was afraid to touch it because "something might pop inside". He was dealing with issues with a knee injury operation at that time and wasn't concerned about the lump on his chest. Since that time it has come and gone 2-3 days at a time. Most recently noticed it last night. Not painful, red, or draining. Denies fever, chills, chest pain, cough, SOB, abdominal pain, breast pain, n/v. - History of Current Complaint Chief Complaint: UCSkin Time Seen by Provider: 01/24/19 13:43 Stated Complaint: LUMP ON CHEST Hx Obtained From: Patient Onset/Duration: Gradual Onset Skin Exposure Onset/Duration: Weeks Ago Current Severity: None Pain Intensity: 0 - Allergy/Home Medications Allergies/Adverse Reactions: Allergies Allergy/AdvReac Type Severity Reaction Status Date / Time No Known Allergies Allergy Verified 01/24/19 13:37 Home Medications: Home Medications NK [No Home Medications Reported] 01/24/19 [History Confirmed 01/24/19] PMH/Surg Hx/FS Hx/Imm Hx - Additional Past Medical History Additional PMH: None - Surgical History Surgical History: Yes Surgery Procedure, Year, and Place: rt inguinal hernia repair 6 yrs ago - Family History Known Family History: Positive: Unknown, Diabetes - Brother - Social History Lives: With Family Alcohol Use: Daily Alcohol Amount: 2 Substance Use Type: Marijuana Smoking Status (MU): Never Smoked Tobacco Review of Systems All Other Systems Reviewed And Are Negative: Yes Constitutional: Positive: Negative Skin: Positive: Other - Bump on chest Respiratory: Positive: Negative Cardiovascular: Positive: Negative Neurovascular: Positive: Negative Musculoskeletal: Positive: Negative Neurological: Positive: Negative Psychological: Positive: Negative Physical Exam - Summary Physical Exam Summary: GENERAL: NAD. WDWN. No pain distress. SKIN: At area of interest there is no "bump" appreciated other than his xiphoid process. No erythema, edema, tenderness, induration, nodule, firmness, streaking , or fluctuance. NECK: Supple. Nontender. No lymphadenopathy. CHEST: No accessory muscle use. Breathing comfortably and in no distress. CV: Pulses intact. Cap refill <2seconds NEURO: Alert. PSYCH: Age appropriate behavior. Triage Information Reviewed: Yes Vital Signs: Initial Vital Signs Temp 98 F 01/24/19 13:35 Pulse 79 01/24/19 13:35 Resp 18 01/24/19 13:35 BP 131/92 01/24/19 13:35 Pulse Ox 100 01/24/19 13:35 Vital Signs Reviewed: Yes Course/Dx - Course Course Of Treatment: His exam today was normal and there was no evidence of an abnormal bump/lump at the base of his sternum. He states he does not see it or feel it today. Given his description, it could be a cyst that comes and goes. Could also be his xiphoid process that he is feeling. Advised to be rechecked if bump returns. - Diagnoses Provider Diagnosis: Normal exam Discharge - Sign-Out/Discharge Documenting (check all that apply): Patient Departure All imaging exams completed and their final reports reviewed: No Studies - Discharge Plan Condition: Stable Disposition: HOME Patient Education Materials: Cyst (ED) Referrals: No Primary Care Phys,NOPCP [Primary Care Provider] - Additional Instructions: If you develop a fever, shortness of breath, chest pain, new or worsening symptoms - please call your PCP or go to the ED immediately. Your blood pressure was high at todays visit. Please see your primary provider within 4 weeks for recheck and re-evaluation. The lump you are describing was not present today and the exam of the area is normal. Based on what you described, this seems most likely to be a cyst. If the area returns, please be rechecked - Billing Disposition and Condition Condition: STABLE Disposition: Home
== END 2019-01-24 14:00 | disposition home or self-care (01) ==
LOC: UCEAST 13:26
DX: R22.2 Localized swelling, mass and lump, trunk (principal)
CPT/HCPCS: 99211; G0463

== ENCOUNTER 2019-07-31 07:28 | Emergency (ER) | payer OTHER ==
--- NOTE | 2019-07-31 07:52 | ED ---
Upper Extremity Pain - HPI Summary HPI Summary: 53 year old M arriving via private car complains of progressively worsening right shoulder pain x4 weeks. Patient states he has an appointment with orthopedic surgery in 1 week but he states that the pain has worsened significantly and that he has developed right finger numbness. Patient denies neck pain. Patient states he injured his right shoulder 1 year ago after slamming his right shoulder into the door after stepping on a ball but never saw an orthopedic surgeon for it. Symptoms rated 5/10 in severity. Symptoms aggravated by range of motion and lifting exercise weights. Symptoms alleviated by nothing. Medications reviewed. Allergies reviewed. - History of Current Complaint Chief Complaint: EDShoulderClavicleInj Stated Complaint: SHOULDER/NECK PAIN PER PT Time Seen by Provider: 07/31/19 07:47 Hx Obtained From: Patient Onset/Duration: Started Weeks Ago - 4, Still Present Timing: Constant Severity Currently: Moderate Pain Location: Shoulder - right Aggravating Factor(s): Other - range of motion, lifting exercise weights Alleviating Factor(s): Nothing Associated Signs & Symptoms: Positive: Negative - neck pain, Other - right finger numbness - Allergies/Home Medications Allergies/Adverse Reactions: Allergies Allergy/AdvReac Type Severity Reaction Status Date / Time No Known Allergies Allergy Verified 07/31/19 07:37 PMH/Surg Hx/FS Hx/Imm Hx Endocrine/Hematology History: Denies: Hx Diabetes, Hx Thyroid Disease Cardiovascular History: Reports: Hx Hypertension - MEDICATED Denies: Hx Pacemaker/ICD, Other Cardiovascular Problems/Disorders Respiratory History: Denies: Hx Asthma, Hx Chronic Obstructive Pulmonary Disease (COPD), Other Respiratory Problems/Disorders GI History: Denies: Hx Ulcer, Other GI Disorders History: Denies: Hx Dialysis Musculoskeletal History: Denies: Other Musculoskeletal History Sensory History: Denies: Hx Contacts or Glasses, Hx Hearing Aid Opthamlomology History: Denies: Hx Contacts or Glasses Neurological History: Denies: Hx Seizures, Other Neuro Impairments/Disorders Psychiatric History: Denies: Hx Autism, Hx Panic Disorder - Cancer History Hx Chemotherapy: No - Surgical History Surgery Procedure, Year, and Place: rt inguinal hernia repair Hx Anesthesia Reactions: No Infectious Disease History: No Infectious Disease History: Reports: History Other Infectious Disease - Lyme 2014 Denies: Hx Hepatitis, Hx Human Immunodeficiency Virus (HIV), Traveled Outside the [place] in Last 30 Days - Family History Known Family History: Positive: Diabetes - Brother - Social History Alcohol Use: Daily Alcohol Amount: 2 Hx Substance Use: Yes Substance Use Type: Reports: Marijuana Hx Tobacco Use: No Smoking Status (MU): Never Smoked Tobacco Review of Systems Musculoskeletal: Negative - neck pain Positive: Other - right shoulder pain Neurological: Other - right finger numbness All Other Systems Reviewed And Are Negative: Yes Physical Exam - Summary Physical Exam Summary: VITAL SIGNS: Reviewed. GENERAL: Patient is a well-developed and nourished MALE who is lying comfortable in the stretcher. Patient is not in any acute respiratory distress. HEAD AND FACE: No signs of trauma. No ecchymosis, hematomas or skull depressions. No sinus tenderness.. EYES: PERRLA, EOMI x 2, No injected conjunctiva, no nystagmus. EARS: Hearing grossly intact. Ear canals and tympanic membranes are within normal limits. MOUTH: Oropharynx within normal limits. NECK: Supple, trachea is midline, no adenopathy, no JVD, no carotid bruit, no c- spine tenderness, neck with full ROM. CHEST: Symmetric, no tenderness at palpation. LUNGS: Clear to auscultation bilaterally. No wheezing or crackles. CVS: Regular rate and rhythm, S1 and S2 present, no murmurs or gallops appreciated. ABDOMEN: Soft, non-tender. No signs of distention. No rebound, no guarding, and no masses palpated. Bowel sounds are normal. EXTREMITIES: There is no deformity, ecchymosis, rashes on the right shoulder. He has right shoulder pain on abduction about 45 degrees. Good pulses and good cap refill in the right upper extremity. NEURO: Alert and oriented x 3. No acute neurological deficits. Speech is normal and follows commands. SKIN: Dry and warm. Triage Information Reviewed: Yes Vital Signs On Initial Exam: Initial Vitals Temp Pulse Resp BP Pulse Ox 97.7 F 88 18 187/106 97 07/31/19 07:31 07/31/19 07:31 07/31/19 07:31 07/31/19 07:31 07/31/19 07:31 Vital Signs Reviewed: Yes Procedures - Sedation Patient Received Moderate/Deep Sedation with Procedure: No Diagnostics - Vital Signs Vital Signs Temp Pulse Resp BP Pulse Ox 07/31/19 07:31 97.7 F 88 18 187/106 97 - Laboratory Lab Statement: Any lab studies that have been ordered have been reviewed, and results considered in the medical decision making process. Course/Dx - Course Assessment/Plan: 53 year old M arriving via private car complains of progressively worsening right shoulder pain x4 weeks. Patient states he has an appointment with orthopedic surgery in 1 week but he states that the pain has worsened significantly and that he has developed right finger numbness. Patient denies pain in my neck pain. Patient states he injured his right shoulder 1 year ago after slamming his right shoulder into the door after stepping on a ball but never saw an orthopedic surgeon for it. Symptoms rated 5/10 in severity. Symptoms aggravated by range of motion and lifting exercise weights. Symptoms alleviated by nothing. Medications reviewed. Allergies reviewed. Since the patient has a rotator cuff injury and the patient has an appointment with orthopedics, I believe that the patient does not need any type of imaging at this point. Therefore, the patient will be given Toradol and Decadron for pain. Patient will be discharged home to follow-up with orthopedics. Patient was agreeable with the plan. All his questions were answered at satisfaction. Patient is hemodynamically stable alert oriented 3. - Diagnoses Differential Diagnosis/HQI/PQRI: Positive: Arthritis, Bursitis, Contusion, Strain, Sprain Provider Diagnoses: Rotator cuff injury Discharge ED - Sign-Out/Discharge Documenting (check all that apply): Patient Departure - Discharge Plan Condition: Stable Disposition: HOME Prescriptions: Ibuprofen TAB* [Motrin TAB* 800 MG] 800 mg PO Q8H PRN #30 tab PRN Reason: Pain - Moderate methylPREDNISolone [Medrol Dosepak 4 MG*] 0 mg PO .SEE JOAQUINA INSTRUCTION #1 joaquina Patient Education Materials: Rotator Cuff Injury (ED) Referrals: Drew Kemp MD [Medical Doctor] - Additional Instructions: Call Dr. Kemp's office now to see if they can see you earlier than your scheduled appointment. Return to the Emergency Department for new or worsening symptoms. - Billing Disposition and Condition Condition: STABLE Disposition: Home - Attestation Statements Document Initiated by Scribe: Yes Documenting Scribe: Odilia Santa Provider For Whom Scribe is Documenting (Include Credential): Kendall Treadwell MD Scribe Attestation: Odilia Elmore, scribed for Kendall Treadwell MD on 07/31/19 at 1841. Scribe Documentation Reviewed: Yes Provider Attestation: The documentation as recorded by the scribe, Odilia Santa accurately reflects the service I personally performed and the decisions made by me, Kendall Treadwell MD Status of Scribe Document: Viewed
[2019-07-31] MEDS ORDERED: Dexamethasone TAB* 4 MG PO ONE (07:54)
[2019-07-31] MEDS ORDERED: Ketorolac *IM* INJ* 60 MG/2 ML VIAL IM ONE (07:54)
[2019-07-31 08:05] VITALS: BP 0/0
== END 2019-07-31 08:04 | disposition home or self-care (01) ==
LOC: ED 07:28
DX: S46.001A Unspecified injury of muscle(s) and tendon(s) of the rotator cuff of right shoulder, initial encounter (principal); W22.09XA Striking against other stationary object, initial encounter; Y92.9 Unspecified place or not applicable; I10 Essential (primary) hypertension
CPT/HCPCS: 96372; 99282; J1885; J8540